=== PATIENT | female | born 1980 | race Caucasian/White ===

== ENCOUNTER 2017-08-15 23:05 | Emergency (ER) | payer OTHER ==
[2017-08-15 23:06] VITALS: BMI 18.3
[2017-08-15] MEDS ORDERED: Sodium Chloride 0.9% 1,000 ML IV STA (23:45)
[2017-08-16 00:12] LABS: BASO # 0.01 K/mm3 (0.0-2.0); BASO % 0.1 % (0.0-3.0); EOS # 0.1 (0.0-0.7); EOS % 0.8 % (1.5-5.0); GRAN # 9.46 (1.4-6.5); GRAN % 81.3 % (50.0-68.0); HEMOGLOBIN 12.5 g/dL (12.0-16.0); LYMPH # 1.5 (1.2-3.4); LYMPH % 13.1 % (22.0-35.0); MEAN CELL VOLUME 84.4 fl (80.0-105.0); MEAN CORPUSCULAR HEMOGLOBIN 28.7 pg (25.0-35.0); MEAN CORPUSCULAR HGB CONC 34.1 g/dl (31.0-37.0); MEAN PLATELET VOLUME 9.2 fl (7.0-11.0); MONO # 0.6 (0.1-0.6); MONO % 4.7 % (1.0-6.0); RBC 4.35 10^6/uL (3.5-6.1); RED CELL DISTRIBUTION WIDTH 12.5 % (11.5-14.5); WHITE BLOOD COUNT 11.6 10^3/ul (4.5-11.0)
[2017-08-16 00:31] LABS: ALB/GLOB RATIO 1.3 (1.1-1.8); ALBUMIN 3.8 g/dL (3.0-4.8); ALT/SGPT 25 U/L (7-56); AST/SGOT 29 U/L (14-36); BLOOD UREA NITROGEN 18 mg/dL (7-21); CALCIUM 9.4 mg/dL (8.4-10.5); GFR AFRICAN-AMERICAN > 60; GFR NON-AFRICAN AMERICAN > 60; LIPASE 110 U/L (23-300)
--- NOTE | 2017-08-16 00:53 | ED PDOC ---
Arrival/HPI - General Chief Complaint: Abdominal Pain Time Seen by Provider: 08/15/17 23:08 Historian: Patient - History of Present Illness Narrative History of Present Illness (Text): 08/16/17 00:53 pJ Dinero is a 36 year old female, with no significant past medical history , presents to the emergency department complaining of abdominal pain and numbness of the hands today. Patient denies any fever, chills, chest pain, shortness of breath, nausea, vomiting, diarrhea, urinary symptoms, back pain, neck pain, headache, dizziness, or any other complaints. Time/Duration: Prior to Arrival Symptom Onset: Gradual Symptom Course: Unchanged Activities at Onset: Light Context: Home Past Medical History - Provider Review Nursing Documentation Reviewed: Yes - Infectious Disease Hx of Infectious Diseases: None - Psychiatric Hx Substance Use: No - Anesthesia Hx Anesthesia: No Family/Social History - Physician Review Nursing Documentation Reviewed: Yes Family/Social History: Unknown Family HX Smoking Status: Former Smoker Hx Alcohol Use: No Hx Substance Use: No Allergies/Home Meds Allergies/Adverse Reactions: Allergies No Known Allergies Allergy (Verified 08/15/17 23:39) Home Medications: Home Meds Medication Instructions Recorded Confirmed No Known Home Med 08/15/17 08/15/17 Review of Systems - Physician Review All systems were reviewed & negative as marked: Yes - Review of Systems Constitutional: Normal Eyes: Normal ENT: Normal Respiratory: Normal. absent: SOB, Cough Cardiovascular: Normal. absent: Chest Pain Gastrointestinal: Abdominal Pain. absent: Diarrhea, Vomiting Genitourinary Female: Normal Musculoskeletal: Normal Skin: Normal Neurological: Other (+bilateral hand numbness). absent: Headache, Dizziness Endocrine: Normal Hemo/Lymphatic: Normal Psychiatric: Normal Physical Exam - Physical Exam Physical Exam Limitations: Uncooperative Vital Signs Reviewed: Yes Vital Signs Temp Pulse Resp BP Pulse Ox 08/16/17 01:51 98.0 F 82 17 115/72 98 08/15/17 23:21 97.7 F 90 18 113/54 L 100 Temperature: Afebrile Blood Pressure: Normal Pulse: Regular Respiratory Rate: Normal Appearance: Positive for: Well-Appearing, Non-Toxic, Comfortable Pain Distress: None Mental Status: Positive for: Alert and Oriented X 3 - Systems Exam Head: Present: Atraumatic, Normocephalic Pupils: Present: PERRL Extroacular Muscles: Present: EOMI Conjunctiva: Present: Normal Mouth: Present: Moist Mucous Membranes Neck: Present: Normal Range of Motion. No: Meningeal Signs, MIDLINE TENDERNESS , Paraspinal Tenderness Respiratory/Chest: Present: Clear to Auscultation, Good Air Exchange. No: Respiratory Distress, Accessory Muscle Use Cardiovascular: Present: Regular Rate and Rhythm, Normal S1, S2. No: Murmurs Abdomen: Present: Normal Bowel Sounds. No: Tenderness, Distention, Peritoneal Signs Back: Present: Normal Inspection. No: CVA Tenderness, Midline Tenderness, Paraspinal Tenderness Upper Extremity: Present: Normal Inspection. No: Cyanosis, Edema Lower Extremity: Present: Normal Inspection. No: Edema, CALF TENDERNESS, Cyanosis Neurological: Present: GCS=15, CN II-XII Intact, Speech Normal Skin: Present: Warm, Dry, Normal Color. No: Rashes Psychiatric: Present: Alert, Oriented x 3, Normal Insight, Normal Concentration Medical Decision Making ED Course and Treatment: 08/16/17 01:00 Impression: 36 year old female presents to the emergency department with abdominal pain and hand numbness. Differential Diagnosis included but are not limited to: Plan: -- Urinalysis -- HCG Urine -- Beta - HCG, Quantitative -- Sodium Chloride -- Reassess and disposition Prior Visits: Notes and results from previous visits were reviewed. Patient was last seen in the emergency department on 04/11/15 for a GI problem but was discharged home. Progress Notes: - Lab Interpretations Lab Results: 08/16/17 00:07 08/16/17 00:07 Lab Results 08/16/17 01:00: Urine Color Yellow, Urine Appearance Sl cloudy, Urine pH 8.5, Ur Specific [place] 1.010, Urine Protein 30 H, Urine Glucose (UA) Negative, Urine Ketones Negative, Urine Blood Large H, Urine Nitrate Negative, Urine Bilirubin Negative, Urine Urobilinogen 0.2, Ur Leukocyte Esterase Negative, Urine RBC 25 - 30, Urine WBC 0 - 2, Ur Epithelial Cells 0 - 2, Urine Bacteria Few, Urine HCG, Qual Negative 08/16/17 00:07: Beta HCG, Quant < 2.39 08/16/17 00:07: Sodium 138, Potassium 3.2 L, Chloride 103, Carbon Dioxide 25, Anion Gap 14, BUN 18, Creatinine 0.6 L, Est GFR ( Amer) > 60, Est GFR ( Non-Af Amer) > 60, Random Glucose 134 H, Calcium 9.4, Total Bilirubin 0.3, AST 29, ALT 25, Alkaline Phosphatase 46, Total Protein 6.7, Albumin 3.8, Globulin 2.9, Albumin/Globulin Ratio 1.3, Lipase 110 08/16/17 00:07: WBC 11.6 H D, RBC 4.35, Hgb 12.5, Hct 36.7, MCV 84.4, MCH 28.7, MCHC 34.1, RDW 12.5, Plt Count 201, MPV 9.2, Gran % 81.3 H, Lymph % (Auto) 13.1 L, [place] % (Auto) 4.7, Eos % (Auto) 0.8 L, Baso % (Auto) 0.1, Gran # 9.46 H, Lymph # (Auto) 1.5, [place] # (Auto) 0.6, Eos # (Auto) 0.1, Baso # (Auto) 0.01 - Medication Orders Current Medication Orders: Discontinued Medications Sodium Chloride (Sodium Chloride 0.9%) 1,000 mls @ 100 mls/hr IV .Q10H STA Stop: 08/16/17 09:44 Last Admin: 08/16/17 00:03 Dose: 100 mls/hr eMAR Start Stop Document 08/16/17 00:03 IT (Rec: 08/16/17 00:03 IT [id number]) Intravenous Solution Start Date 08/16/17 Start Time 00:03 Ketorolac Tromethamine (Toradol) 30 mg IVP ONCE ONE Stop: 08/16/17 01:02 Last Admin: 08/16/17 01:13 Dose: 30 mg MAR Pain Assessment Document 08/16/17 01:13 IT (Rec: 08/16/17 01:13 IT [id number]) Pain Reassessment Is this a pain reassessment? No Sleep Is patient sleeping during reassessment? No Presence of Pain Presence of Pain Yes Pain Scale Used Pain Scale Used Numeric IVP Administration Document 08/16/17 01:13 IT (Rec: 08/16/17 01:13 IT [id number]) Charges for Administration # of IVP Administrations 1 - Scribe Statement The provider has reviewed the documentation as recorded by the Scribe Jannie Swanson, training under Cynthia Roach Provider Scribe Attestation: All medical record entries made by the Scribe were at my direction and personally dictated by me. I have reviewed the chart and agree that the record accurately reflects my personal performance of the history, physical exam, medical decision making, and the department course for this patient. I have also personally directed, reviewed, and agree with the discharge instructions and disposition. Disposition/Present on Arrival - Present on Arrival Any Indicators Present on Arrival: No History of DVT/PE: No History of Uncontrolled Diabetes: No Urinary Catheter: No History of Decub. Ulcer: No History Surgical Site Infection Following: None - Disposition Have Diagnosis and Disposition been Completed?: Yes Diagnosis: Dysmenorrhea Disposition: HOME/ ROUTINE Disposition Time: 01:50 Condition: GOOD Discharge Instructions (ExitCare): Dysmenorrhea (ED) Referrals: PCP,NO [Primary Care Provider] - Follow up with primary Forms: [facility] (Tai[place]ese)
[2017-08-16 01:15] LABS: PH,URINE 8.5 (4.7-8.0); URINE BILIRUBIN NEGATIVE (NEGATIVE); URINE BLOOD LARGE (NEGATIVE); URINE GLUCOSE (UA) NEGATIVE (NEGATIVE); URINE LEUKOCYTE ESTERASE NEGATIVE Leu/uL (NEGATIVE); URINE NITRATE NEGATIVE (NEGATIVE); URINE PROTEIN 30 mg/dL (<30 mg/dL); URINE UROBILINOGEN 0.2 E.U./dL (<1 E.U./dL)
[2017-08-16 01:23] LABS: URINE APPEARANCE SL CLOUDY (CLEAR); URINE COLOR YELLOW (YELLOW)
[2017-08-16 01:26] LABS: HCG,QUALITATIVE URINE NEGATIVE (NEGATIVE)
[2017-08-16 01:46] LABS: URINE BACTERIA FEW (NEG); URINE EPITHELIAL CELLS 0 - 2 /hpf (0-5); URINE RBC 25 - 30 /hpf (0-2); URINE WBC 0 - 2 /hpf (0-6)
[2017-08-16 01:56] VITALS: BP 115/72; PULSE 82; RESP 17; TEMP 98; O2SAT 98
== END 2017-08-16 01:56 | disposition home or self-care (01) ==
LOC: ED 23:05
DX: N94.6 Dysmenorrhea, unspecified (principal)
CPT/HCPCS: 80053; 81001; 83690; 84702; 84703; 85025; 96374; 99283; J1885; J7040

== ENCOUNTER 2017-09-01 18:10 | Emergency (ER) | payer OTHER ==
[2017-09-01 18:11] VITALS: BMI 18.3
--- NOTE | 2017-09-01 19:06 | ED PDOC ---
Arrival/HPI - General Historian: Patient <Holger Barbour - Last Filed: 09/01/17 21:03> <Alexandru Pitts DO - Last Filed: 09/01/17 22:17> - General Chief Complaint: Dizziness/Lightheaded Time Seen by Provider: 09/01/17 18:44 - History of Present Illness Narrative History of Present Illness (Text): 09/01/17 18:54 36 y/o female, chronic neck pain with bilateral hand numbness, nkda, c/o acute onset of dizziness/nausea/vomiting started about 1 hour ago. Pt. stated that she feels dizziness, room spinning sensation, associated with nausea and vomiting, no chest pain or shortness of breath, feels anxious because of the room spinning sensation, no new numbness or tingling, stated that she was seen here for similar complain about 2 weeks ago and discharge home, no night sweat, no urinary symptoms, no other medical or psychological complaints. (Holger Barbour) Past Medical History - Provider Review Nursing Documentation Reviewed: Yes - Infectious Disease Hx of Infectious Diseases: None - Neurological Hx Dizziness: Yes Hx Vertigo: Yes - Psychiatric Hx Substance Use: No - Anesthesia Hx Anesthesia: No Hx Anesthesia Reactions: No Hx Malignant Hyperthermia: No <Holger Barbour - Last Filed: 09/01/17 21:03> Family/Social History - Physician Review Nursing Documentation Reviewed: Yes Family/Social History: Unknown Family HX Smoking Status: Never Smoked Hx Alcohol Use: No Hx Substance Use: No <Holger Barbour - Last Filed: 09/01/17 21:03> Allergies/Home Meds <Holger Barbour - Last Filed: 09/01/17 21:03> <Alexandru Pitts DO - Last Filed: 09/01/17 22:17> Allergies/Adverse Reactions: Allergies No Known Allergies Allergy (Verified 09/01/17 18:19) Review of Systems - Review of Systems Constitutional: absent: Fatigue, Fevers Eyes: absent: Vision Changes ENT: absent: Hearing Changes Respiratory: absent: SOB, Cough Cardiovascular: absent: Chest Pain Gastrointestinal: Nausea, Vomiting. absent: Abdominal Pain, Diarrhea Skin: absent: Rash, Pruritis Neurological: Dizziness Psychiatric: absent: Anxiety, Depression, Suicidal Ideation <Holger Barbour - Last Filed: 09/01/17 21:03> Physical Exam Vital Signs Reviewed: Yes Temperature: Afebrile Blood Pressure: Normal Pulse: Regular Respiratory Rate: Normal Appearance: Positive for: Well-Appearing, Non-Toxic, Comfortable Pain Distress: None Mental Status: Positive for: Alert and Oriented X 3 - Systems Exam Head: Present: Atraumatic, Normocephalic. No: Tenderness, Contusion, Swelling, Ecchymosis, Abrasion, Laceration, Other Pupils: Present: PERRL Extroacular Muscles: Present: EOMI Conjunctiva: Present: Normal Mouth: Present: Moist Mucous Membranes Neck: Present: Normal Range of Motion, Trachea Midline. No: MIDLINE TENDERNESS , Paraspinal Tenderness, Lymphadenopathy Respiratory/Chest: Present: Clear to Auscultation, Good Air Exchange. No: Respiratory Distress, Accessory Muscle Use Cardiovascular: Present: Regular Rate and Rhythm, Normal S1, S2. No: Murmurs Abdomen: Present: Normal Bowel Sounds. No: Tenderness, Distention, Peritoneal Signs, Rebound, Guarding Back: Present: Normal Inspection. No: CVA Tenderness, Midline Tenderness, Paraspinal Tenderness Upper Extremity: Present: Normal Inspection. No: Cyanosis, Edema Lower Extremity: Present: Normal Inspection. No: Edema Neurological: Present: GCS=15, CN II-XII Intact, Speech Normal, Motor Func Grossly Intact, Gait Normal, Memory Normal, Other (+[place], no drift, no focal neurological deficits. ) Skin: Present: Warm, Dry, Normal Color. No: Rashes Psychiatric: Present: Alert, Oriented x 3, Normal Insight, Normal Concentration <Holger Barbour - Last Filed: 09/01/17 21:03> Vital Signs Temp Pulse Resp BP Pulse Ox 09/01/17 21:17 98.0 F 82 17 120/72 99 09/01/17 18:54 97.8 F 86 18 113/76 98 09/01/17 18:13 97.8 F 86 20 113/76 98 Medical Decision Making - RAD Interpretation Interior Design Faculty Member: Radiologist - EKG Interpretation Interpreted by ED Physician: Yes Type: 12 lead EKG Comparison: No previous EKG avail. <Holger Barbour - Last Filed: 09/01/17 21:03> <Alexandru Pitts DO - Last Filed: 09/01/17 22:17> ED Course and Treatment: 09/01/17 19:13 -labs/ua/magnesium -ekg -CT head -IVF/meclizine/reglan -dice table person -observe and reassess 09/01/17 20:04 -Urine is negative, valium po ordered as the patient is anxious but non-tachycardiac, no cardiopulmonary complaints. 09/01/17 21:03 -EKG: NSR @ 79 BPM, no ST elevation or depression, no T wave inversion, no previous ekg available for comparison. -Labs are non-significant except wbc 12 (pt. is anxious, likely stress induced, no fever), K+ 3.1 (potassium chloride 40meq po ordered as she is chronically low ). -UA show +UTI, macrobid ordered -CT head: No definite acute intracranial abnormality. -Pt. feels much better, non-anxious and refused psychiatric evaluation, walking independently with normal gait and posture, no focal neurological deficits. -Discharge home with macrobid, zofran, meclizine, eat more bananas, stay hydrated, follow up with your own pmd and neurologist within 2 days, return to the ER for any new or worsening signs or symptoms. (Holger Barbour) - Lab Interpretations Lab Results: 09/01/17 19:10 09/01/17 19:10 Lab Results 09/01/17 20:05: Urine Color Yellow, Urine Appearance Slight-cloudy, Urine pH 8.5 , Ur Specific [place] 1.015, Urine Protein 30 H, Urine Glucose (UA) Negative, Urine Ketones 40 H, Urine Blood Large H, Urine Nitrate Negative, Urine Bilirubin Negative, Urine Urobilinogen 0.2, Ur Leukocyte Esterase Small H, Urine RBC 1 - 3, Urine WBC 2 - 5, Ur Epithelial Cells Tntc, Urine Bacteria Few 09/01/17 19:10: WBC 12.1 H, RBC 4.74, Hgb 13.6, Hct 39.5, MCV 83.3, MCH 28.7, MCHC 34.4, RDW 12.4, Plt Count 285, MPV 9.7, Gran % 82.0 H, Lymph % (Auto) 12.6 L, [place] % (Auto) 5.0, Eos % (Auto) 0.2 L, Baso % (Auto) 0.2, Gran # 9.92 H, Lymph # (Auto) 1.5, [place] # (Auto) 0.6, Eos # (Auto) 0.0, Baso # (Auto) 0.02 09/01/17 19:10: Beta HCG, Quant < 2.39 09/01/17 19:10: Sodium 140, Potassium 3.1 L, Chloride 103, Carbon Dioxide 21, Anion Gap 18, BUN 11, Creatinine 0.5 L, Est GFR ( Amer) > 60, Est GFR ( Non-Af Amer) > 60, Random Glucose 112 H, Calcium 10.3, Magnesium 1.9, Total Bilirubin 0.7, AST 23, ALT 22, Alkaline Phosphatase 61, Total Protein 7.9, Albumin 4.4, Globulin 3.4, Albumin/Globulin Ratio 1.3 - RAD Interpretation Radiology Orders: 09/01/17 19:06 HEAD W/O CONTRAST [CT] Stat FINDINGS: Brain: No intracranial hemorrhage. No mass. No definite edema. Ventricles: No hydrocephalus. Bones/joints: No acute fracture. Soft tissues: Unremarkable. Sinuses: No acute sinusitis. Mastoid air cells: No mastoid effusion. Orbits: Unremarkable as visualized. IMPRESSION: 1. No definite acute intracranial abnormality. Thank you for allowing us to participate in the care of your patient. Dictated and Authenticated by: Sanjay Dubois MD 09/01/2017 9:00 PM Eastern Time (US & Ad) (Holger Barbour) - EKG Interpretation EKG Interpretation (Text): 09/01/17 19:39 -EKG: NSR @ 79 BPM, no ST elevation or depression, no T wave inversion, no previous ekg available for comparison. (Holger Barbour) - Medication Orders Current Medication Orders: Discontinued Medications Diazepam (Valium) 5 mg PO ONCE ONE PRN Reason: Protocol Stop: 09/01/17 20:05 Last Admin: 09/01/17 20:25 Dose: 5 mg Sodium Chloride (Sodium Chloride 0.9%) 1,000 mls @ 999 mls/hr IV .Q1H1M STA Stop: 09/01/17 20:11 Last Admin: 09/01/17 19:12 Dose: 999 mls/hr eMAR Start Stop Document 09/01/17 19:12 HP (Rec: 09/01/17 19:12 HP [id number]) Intravenous Solution Start Date 09/01/17 Start Time 19:12 End Date 09/01/17 End time 20:12 Total Infusion Time 60 Sodium Chloride (Sodium Chloride 0.9%) 1,000 mls @ 250 mls/hr IV .Q4H BRITTANY Last Admin: 09/01/17 19:22 Dose: 250 mls/hr eMAR Start Stop Document 09/01/17 19:22 HP (Rec: 09/01/17 19:22 HP [id number]) Intravenous Solution Start Date 09/01/17 Start Time 19:22 Meclizine HCl (Antivert) 50 mg PO STAT STA Stop: 09/01/17 19:12 Last Admin: 09/01/17 19:22 Dose: 50 mg Metoclopramide HCl (Reglan) 10 mg IVP STAT STA Stop: 09/01/17 19:08 Last Admin: 09/01/17 19:22 Dose: 10 mg IVP Administration Document 09/01/17 19:22 HP (Rec: 09/01/17 19:22 HP [id number]) Charges for Administration # of IVP Administrations 1 Nitrofurantoin Macrocrystals (Macrobid) 100 mg PO STAT STA Stop: 09/01/17 20:33 Last Admin: 09/01/17 21:06 Dose: 100 mg Potassium Chloride (K-Dur 20 Meq Er Tab) 40 meq PO STAT STA Stop: 09/01/17 20:31 Last Admin: 09/01/17 21:06 Dose: 40 meq - PA / HOG OPERATOR / Resident Statement DARVIN has reviewed & agrees with the documentation as recorded. <Holger Barbour - Last Filed: 09/01/17 21:03> - PA / HOG OPERATOR / Resident Statement DARVIN has reviewed & agrees with the documentation as recorded. DARVIN has examined the patient and agrees with the treatment plan. <Alexandru Pitts DO - Last Filed: 09/01/17 22:17> Disposition/Present on Arrival - Present on Arrival Any Indicators Present on Arrival: No History of DVT/PE: No History of Uncontrolled Diabetes: No Urinary Catheter: No History of Decub. Ulcer: No History Surgical Site Infection Following: None - Disposition Have Diagnosis and Disposition been Completed?: Yes Disposition Time: 19:14 Patient Plan: Discharge <Holger Barbour - Last Filed: 09/01/17 21:03> <Alexandru Pitts DO - Last Filed: 09/01/17 22:17> - Disposition Diagnosis: Vertigo, UTI (urinary tract infection), Hypokalemia Disposition: HOME/ ROUTINE Condition: IMPROVED Discharge Instructions (ExitCare): Urinary Tract Infections in Adults Additional Instructions: -Discharge home with macrobid, zofran, meclizine, eat more bananas, stay hydrated, follow up with your own pmd and neurologist within 2 days, return to the ER for any new or worsening signs or symptoms. Prescriptions: Meclizine [Antivert] 25 mg PO Q6 #30 tab Nitrofurantoin Macrocrystals [Macrobid] 100 mg PO BID #14 cap Ondansetron [Zofran] 4 mg PO Q8H PRN #10 tab PRN Reason: Nausea/Vomiting Referrals: Rosales Hernandez MD [Staff Provider] - Follow up with primary [facility] at [facility] [Outside] - Follow up with primary Forms: WORK NOTE
[2017-09-01] MEDS ORDERED: Sodium Chloride 0.9% 1,000 ML IV STA (19:11)
[2017-09-01] MEDS ORDERED: Sodium Chloride 0.9% 1,000 ML IV SCH (19:15)
[2017-09-01 19:45] LABS: BASO # 0.02 K/mm3 (0.0-2.0); BASO % 0.2 % (0.0-3.0); EOS % 0.2 % (1.5-5.0); GRAN # 9.92 (1.4-6.5); HEMOGLOBIN 13.6 g/dL (12.0-16.0); LYMPH # 1.5 (1.2-3.4); LYMPH % 12.6 % (22.0-35.0); MEAN CELL VOLUME 83.3 fl (80.0-105.0); MEAN CORPUSCULAR HEMOGLOBIN 28.7 pg (25.0-35.0); MEAN CORPUSCULAR HGB CONC 34.4 g/dl (31.0-37.0); MEAN PLATELET VOLUME 9.7 fl (7.0-11.0); MONO # 0.6 (0.1-0.6); RBC 4.74 10^6/uL (3.5-6.1); RED CELL DISTRIBUTION WIDTH 12.4 % (11.5-14.5); WHITE BLOOD COUNT 12.1 10^3/ul (4.5-11.0)
[2017-09-01 20:27] LABS: ALB/GLOB RATIO 1.3 (1.1-1.8); ALBUMIN 4.4 g/dL (3.0-4.8); ALT/SGPT 22 U/L (7-56); AST/SGOT 23 U/L (14-36); BLOOD UREA NITROGEN 11 mg/dL (7-21); CALCIUM 10.3 mg/dL (8.4-10.5); GFR AFRICAN-AMERICAN > 60; GFR NON-AFRICAN AMERICAN > 60; MAGNESIUM 1.9 mg/dL (1.7-2.2)
[2017-09-01 20:30] LABS: PH,URINE 8.5 (4.7-8.0); URINE APPEARANCE SLIGHT-CLOUDY (CLEAR); URINE BILIRUBIN NEGATIVE (NEGATIVE); URINE BLOOD LARGE (NEGATIVE); URINE COLOR YELLOW (YELLOW); URINE GLUCOSE (UA) NEGATIVE (NEGATIVE); URINE LEUKOCYTE ESTERASE SMALL Leu/uL (NEGATIVE); URINE NITRATE NEGATIVE (NEGATIVE); URINE PROTEIN 30 mg/dL (<30 mg/dL); URINE UROBILINOGEN 0.2 E.U./dL (<1 E.U./dL)
[2017-09-01] MEDS ORDERED: Potassium Chloride 20 mEq ER Tab PO STA (20:30)
[2017-09-01 21:00] LABS: URINE BACTERIA FEW (NEG); URINE EPITHELIAL CELLS TNTC /hpf (0-5)
--- NOTE | 2017-09-01 21:01 | CT ---
EXAM: CT Head Without Intravenous Contrast CLINICAL HISTORY: 36 years old, female; Signs and symptoms; Dizziness TECHNIQUE: Axial computed tomography images of the head/brain without intravenous contrast. All CT scans at this facility use one or more dose reduction techniques, viz.: automated exposure control; ma/kV adjustment per patient size (including targeted exams where dose is matched to indication; i.e. head); or iterative reconstruction technique. Coronal and sagittal reformatted images were created and reviewed. COMPARISON: No relevant prior studies available. FINDINGS: Brain: No intracranial hemorrhage. No mass. No definite edema. Ventricles: No hydrocephalus. Bones/joints: No acute fracture. Soft tissues: Unremarkable. Sinuses: No acute sinusitis. Mastoid air cells: No mastoid effusion. Orbits: Unremarkable as visualized. IMPRESSION: 1. No definite acute intracranial abnormality.
[2017-09-01 21:19] VITALS: BP 120/72; PULSE 82; RESP 17; TEMP 98; O2SAT 99
--- NOTE | 2017-09-02 11:52 | CARD ---
APPROVED REPORT EKG Measurement Heart [id number] <Conclusion> Normal sinus rhythm rSR in V1 , Incomplete RBBB
== END 2017-09-01 21:19 | disposition home or self-care (01) ==
LOC: ED 18:10
DX: N39.0 Urinary tract infection, site not specified (principal); E87.6 Hypokalemia; R42 Dizziness and giddiness
CPT/HCPCS: 70450; 80053; 81001; 83735; 84702; 85025; 87086; 93005; 96361; 96374; 99285; J2765; J7040